=== PATIENT | male | born 1955 | race Caucasian/White ===

== ENCOUNTER 2024-04-22 17:19 | Inpatient (IN) | payer OTHER, MEDICARE, SELFPAY ==
[2024-04-22] VITALS (7 sets, daily range): BP systolic 129–200; BP diastolic 77–130; BMI 33.5; BMI 32.9
[2024-04-22 13:08] LABS: % Basophils 0.3 % (0-2); % Eosinophils 1.7 % (0-6); % Immature Granulocytes 0.6 % (0-0.5); % Lymphocytes 9.3 % (20.5-51.1); % Monocytes 7.3 % (1.7-9.3); % Neutrophils 80.8 % (42.2-75.2); Absolute Eosinophils 0.3 10^3/uL (0-0.7); Absolute Immature Granulocytes 0.1 10^3/uL (0-0.05); Absolute Lymphocytes 1.5 10^3/uL (1.2-3.4); Absolute Monocytes 1.2 10^3/uL (0.1-0.6); Absolute Neutrophils 12.7 10^3/uL (1.4-6.5); Hematocrit 42.9 % (39.0-52.0); Hemoglobin 15.1 g/dL (13.0-18.0); Mean Corp Hgb Conc. 35.2 g/dL (33.0-37.0); Mean Corpuscular Hgb 33.7 pg (27.0-31.0); Mean Corpuscular Volume 95.8 fL (80.0-94.0); Mean Platelet Volume 9.5 fL (7.4-10.4); Nucleated Red Blood Cells % 0 % (-); Platelet Count 215 10^3/uL (130-400); Red Blood Cell Count 4.48 10^6/uL (4.70-6.10); Red Cell Dist. Width 12.4 % (11.5-14.5); White Blood Cell Count 15.7 10^3/uL (4.8-10.8)
[2024-04-22 13:22] LABS: ALT (SGPT) 24 U/L (0-50); AST (SGOT) 29 U/L (17-59); Albumin 4.7 g/dl (3.5-5.0); Alkaline Phosphatase 96 U/L (38-126); Blood Urea Nitrogen 16 mg/dl (9-20); Calcium 9.8 mg/dl (8.4-10.2); Carbon Dioxide 21 mmol/L (22-30); Chloride 101 mmol/L (98-107); Estimated Creatinine Clearance > 125 ml/min; Glucose 209 mg/dl (70-99); Potassium 4.4 mmol/L (3.5-5.1); Sodium 138 mmol/L (135-145); Total Bilirubin 1.4 mg/dl (0.2-1.3); Total Protein 7.6 g/dl (6.3-8.2); eGFR > 60.00
[2024-04-22 13:29] LABS: NT-proBNP 1730 pg/ml
[2024-04-22 13:33] LABS: COVID-19 Antigen Negative (Negative)
--- NOTE | 2024-04-22 13:44 | ED.GENMED ---
History of Present Illness
General
Chief Complaint: Breathing Problem
Source: patient
Exam Limitations: none
Time Seen by Provider: 04/22/24 13:21
History of Present Illness
History of Present Illness:
68-year-old male noncemented diabetic presents with a cough for the past several days with intermittent chills and shortness of breath today. Denies measurable fever. Denies chest pain. No abdominal pain nausea or vomiting. No leg swelling or
calf pain. No prior history of CHF. No recent travel. No other complaints at this time
Past History
Past History
ED Past Medical History: Arrthythmia (Paroxysmal atrial fibrillation) and HTN
ED Past Surgical History: Other (Hernia repair)
Social History
Tobacco: Former smoker
Alcohol: Occasional
Personal:
Living: alone
Employment: Employed
Family History
Family History: Unable to obtain
Phy Exam
Physical Exam
Physical Exam:
General: Well-developed male with increased work of breathing
HEENT: Normocephalic atraumatic
Heart: Tachycardic and irregular
Lungs: Wheeze with crackles on the left with diminished breath sounds on the right
Abdomen is soft nontender
Extremities: No cyanosis or edema
Scores
Heart Failure Risk
Heart Failure Risk Score: Not Applicable
Course
Orders/Labs/Results
Orders:
Orders
04/22/24 12:33
Electrocardiogram (*1) Urgent
Reason for Study: Shortness of Breath
04/22/24 12:34
EKG- Treatment ONCE
04/22/24 12:56
CR Chest - 2 Views Urgent
Comment:
Reason For Exam: sob, cough for 3 days.
04/22/24 12:58
COVID-19 Antigen Urgent
Source: Nasal Swab
Complete Blood Count/With Diff Urgent
Comprehensive Metabolic Panel Urgent
NT-proBNP Urgent
Influenza A+B Rapid Molecular Urgent
MATT Source: Nasal Swab
Specimen Description:
04/22/24 13:41
Ipratropium/Albuterol Sulfate [Duoneb] 3 ml INH R NOW STA
04/22/24 13:47
Azithromycin 500 mg/250 ml [Zithromax Infusion] 500 mg in 250 ml IV NOW
CefTRIAXone [Rocephin] 1,000 mg IV NOW STA
04/22/24 14:29
Sterile Water [Sterile Water For Injection] 10 ml .ROUTE .K-MED ONE
Abnormal Lab Results
04/22/24
12:58
WBC 15.7 H 10^3/uL
(4.8-10.8)
RBC 4.48 L 10^6/uL
(4.70-6.10)
MCV 95.8 H fL
(80.0-94.0)
MCH 33.7 H pg
(27.0-31.0)
Abs Immat Gran (auto) 0.1 H 10^3/uL
(0-0.05)
Absolute Neuts (auto) 12.7 H 10^3/uL
(1.4-6.5)
Absolute Monos (auto) 1.2 H 10^3/uL
(0.1-0.6)
Immature Gran % 0.6 H %
(0-0.5)
Neutrophils % 80.8 H %
(42.2-75.2)
Lymphocytes % 9.3 L %
(20.5-51.1)
Carbon Dioxide 21 L mmol/L
(22-30)
Creatinine 0.6 L mg/dL
(0.7-1.3)
Glucose 209 H mg/dl
(70-99)
Total Bilirubin 1.4 H mg/dl
(0.2-1.3)
04/22/24 12:58
04/22/24 12:58
Vital Signs
Initial and Last Documented VS:
Initial Vital Signs
Pulse BP Pulse Ox
128 200/130 85
04/22/24 12:37 04/22/24 12:37 04/22/24 12:37
Last Documented Vital Signs
Pulse Resp BP Pulse Ox
112 24 163/87 97
04/22/24 13:15 04/22/24 13:15 04/22/24 13:00 04/22/24 13:34
MDM/Problems Addressed
Differential Diagnosis Includes:
Increased work of breathing cough chills. Consider COVID versus viral illness such as influenza versus pneumonia versus bronchitis.
Patient is 85% on room air now requiring 4 L of oxygen. Chest x-ray reviewed possible opacity in the right middle lobe by ED provider. Read as negative by radiology.
Will treat with DuoNeb. COVID and flu test are negative. Concern for possible underlying pneumonia in a diabetic patient with leukocytosis.
*Critical Care Note
Total Time (30-74mins, 75-104mins- exclusive of procedures): Not Applicable
Update Note
Update Note:
Chest x-ray reviewed. Patient persist to require oxygen. He felt as though the DuoNeb helped him. Clinically suspect pneumonia with leukocytosis cough and chills. Rocephin and Zithromax ordered. Admit to hospitalist
ED Attending Note
-
Portions of this chart may have been created with voice recognition software.� Occasional wrong word or��sound alike� substitutions may have occurred due to the inherent limitations of voice recognition software.
Discharge Plan
Departure
Patient Disposition: Admit
Date of Disposition: 04/22/24
Time of Disposition: 14:36
Admit to: Telemetry
Presentation/result/management discussed w/ accepting MD/DO: Hospitalist
Discharge Problem:
Hypoxia
Prescriptions:
No Action
multivitamin with folic acid [Tab-A-Kristian] 1 TABLET tablet
1 tab PO DAILY
metoprolol succinate 100 mg Tablet Extended Release 24 Hr
100 mg PO QPM
aspirin 81 mg Tablet,Delayed Release (Dr/Ec)
81 mg PO DAILY
diltiazem HCl 120 mg capsule,extended release 12 hr
120 mg PO DAILY
metformin 1,000 mg tablet
1,000 mg PO BIDWMEAL
Ozempic 1 mg/dose (4 mg/3 mL) pen injector
1 mg SC MOREL
Beet
1 tab PO DAILY
Referrals:
Lev Andrea MD [Family Provider] -
Interventions
Interventions:
*Risk Screen - Suicide Last Done: 04/22/24 12:38
*General Assessment Last Done: 04/22/24 13:13
*Neglect/Abuse Screening Last Done: 04/22/24 12:38
ED- Cardiac Assessment Last Done: 04/22/24 13:04
ED- Pulmonary Assessment Last Done: 04/22/24 13:04
Discharge Date and Time
Print Language: TAJIK
[2024-04-22] MEDS: DUONEB 3 ML INH ×2 (13:52→21:15)
[2024-04-22] MEDS: ZITHROMAX INFUSION 250 IV (14:31)
[2024-04-22] MEDS: ROCEPHIN 1000 MG IV (14:31)
--- NOTE | 2024-04-22 16:43 | W.PN.UPDATE ---
Update Note
Progress Note Update
Seen and examined by me independently in collaboration with the resident Maxx.
Past medical history/social history/medication/allergies reviewed.
Lab data and imaging data reviewed.
Patient was presents with a prodrome of respiratory illness which is going on for a week. He was having fever, sweats and cough. The cough started to get worse and he started feel congested and was hearing every. He was also getting short of
breath so he came into the ER.
In the ER he was noted to be tachypneic and wheezing and was also noted to be hypoxic with saturations of 85% on room air.
With a clinical concern of pneumonia we are asked to evaluate for admission.
Patient denies any contact with sick people. No recent travel. Denies any primary lung problems but he does remember having a pneumonia 2 years ago. He is a smoker for 35 years a pack a day and quit 10 years ago. Does not use any inhalers.
Denies any history of heart failure but he has a history of atrial fibrillation and has declined anticoagulation for quite some time. 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
No nausea vomiting. No diarrhea.
Temperature record not available in the chart. Tachypnea and tachycardia noted. Blood pressure stable. No respiratory distress or use of accessory muscles of respiration.
Chest currently without wheeze but he was noted to be wheezy apparently and he received breathing treatments which has helped. Few crackles in the right base.
Heart sinus versus irregular.
Abdomen benign.
No lower extremity edema or JVD.
Chest x-ray shows right basilar opacity-atelectasis versus scarring.
Leukocytosis noted.
EKG and atrial fibrillation with tachycardia.
Clinical symptomatology concerning for community-acquired pneumonia-rule out bacterial. Start on empirical antibiotics with ceftriaxone and doxycycline. Check a procalcitonin. Follow clinical response and antibiotics. Follow blood cultures.
Check a sputum culture.
Pneumonia with reactive airways-treat with nebulizers for now. Hold on steroids. No given diagnosis of COPD or emphysema.
Atrial fibrillation-patient says he is always in atrial fibrillation which makes it permanent. He had it for few years. Had declined anticoagulation. Couple of his siblings have A-fib and one of them is on anticoagulation. He understands the
risk of stroke. Does not want to go on anticoagulation. wants to remain on aspirin. Follow on telemetry with her pulmonary issues. Continue with his Cardizem.
Hypertension continue home medication
Diabetes mellitus-hold metformin. Continue with semaglutide if he is able to bring his medication to the hospital. add sliding scale insulin.
Portions of this chart may have been created with voice recognition software. Occasional wrong word or 'sound alike' substitutions may have occurred due to the inherent limitations of voice recognition software.
--- NOTE | 2024-04-22 17:01 | HPS.HSE ---
Family Physician
-
Family Physician: Lev Andrea
Chief Complaint
-
Shortness of breath
History of Present Illness
Pt is a 68 year old male with a PMH of hypertension, atrial fibrillation, diabetes mellitus type 2 presented to the ED today because he woke up today morning with worsening cough, chest congestion, and wheeze. His symptoms started a week ago with a
slight cough which was dry in nature and then it gradually increased in intensity until it got unbearable today morning for which he admitted himself. The chest congestion and wheeze were present only today morning. No nausea, vomiting, recent
travel, throat pain, headache, association with sick contacts. He had a similar presentation 2 years for which he was diagnosed with pneumonia. In the ER, chest x-ray showed minor scarring or atelectasis in the right lung base, EKG showed atrial
fibrillation with rapid ventricular response. Patient was started on Rocephin and Zithromax and DuoNeb in the ER. He is currently on 2 L nasal cannula saturating at 95%. without oxygen, his saturation is 85% on room air. Negative for Covid and
Flu.
Medical History
Past Medical History
Past Medical History: Reports Arrhythmia, HTN and NIDDM
Past Surgical History: Reports Other (Hernia surgery)
Social History
Tobacco: Former Smoker (quit 10 years ago, smoked a pack a day)
Alcohol: Occasional
Drug: None
Personal:
Living: With Family
Family History
Family History: Not pertinent
Allergies / Home Medications
Allergies reflects when Allergies were last updated in [facility].
Home Medications with original date entered in [facility]
Allergy/Medication List:
Allergies
Allergy/AdvReac Type Severity Reaction Status Date / Time
No Known Allergies Allergy Verified 04/22/24 12:38
Home Medications
multivitamin with folic acid 400 mcg tablet (Tab-A-Kristian) 1 tab PO DAILY Supplement 05/31/19
aspirin 81 mg tablet,delayed release 81 mg PO DAILY Blood clot prevention/tx 08/18/22
metoprolol succinate 100 mg tablet,extended release 24 hr 100 mg PO QPM Heart disease/condition 08/18/22
Beet 1 tab PO DAILY 04/22/24
diltiazem HCl 120 mg capsule,extended release 12 hr 120 mg PO DAILY 04/22/24
metformin 1,000 mg tablet 1,000 mg PO BIDWMEAL 04/22/24
semaglutide 1 mg/dose (4 mg/3 mL) subcutaneous pen injector (Ozempic) 1 mg SC MOREL 04/22/24
Review of Systems
-
History Source: Patient
Respiratory: Reports Cough, Trouble Breathing and Other (chest congestion)
Cardiac: Denies Chest Pain
Physical Exam
Vital Signs
Vital Signs
Pulse Resp BP Pulse Ox
101 20 138/82 94
04/22/24 16:45 04/22/24 16:45 04/22/24 16:00 04/22/24 16:45
Physical Exam
General: Obese
HEENT: Oxygen (2L nasal cannula )
Respiratory: Wheezes (diffuse) and Crackles (left lower lung base)
Cardiac: Irregular Rhythm and Murmur
GI: Soft
Neuro: Awake, Alert, Oriented and AO x 3
Psych: Calm
Laboratory Results
-
04/22/24 12:58
04/22/24 12:58
Laboratory Results
Total Bilirubin 1.4 mg/dl (0.2-1.3) H 04/22/24 12:58
AST 29 U/L (17-59) 04/22/24 12:58
ALT 24 U/L (0-50) 04/22/24 12:58
Alkaline Phosphatase 96 U/L (38-126) 04/22/24 12:58
Data Reviewed
-
Lab Data: Labs Reviewed by me and Discussed with Physician
Impression/Plan
-
IMPRESSION:
Pneumonia
Atrial Fibrillation (not on coagulation)
Essential HTN
Diabetes
PLAN:
Community acquired Pneumonia:
- Ordered Ceftriaxone and Doxycycline as empiric measure
- Ordered Procalcitonin, blood culture, sputum culture
- Continue patient on oxygen therapy
- Patient presents with hypoxia, shortness of breath, cough, chills, chest congestion
- His WBC count is elevated at 15.7
- Chest Xray showed atelectasis in the right lower lung base and minor scarring
- He is currently on oxygen saturation of 95% on 2l NC, without oxygen he is saturating at 85% on room air
Atrial Fibrillation (not on coagulation)
- Patient is taking Aspirin 81
- He is in Afib on EKG taken in ER, he says he is always in Afib, and patient does not want to take any anticoagulation even when presented with the risks
Essential HTN
- blood pressure is 138/82
- He is taking diltiazem
- Blood pressure is well controlled but will continue to monitor
Diabetes
- His serum glucose level is 209
- His home medication of metformin is put on hold
- Insulin sliding scale ordered
- Hemoglobin A1C ordered
[2024-04-22 17:02] LABS: Procalcitonin < 0.05 ng/ml (0.0-0.25)
[2024-04-22] MEDS: LOVENOX 40 MG SC (20:57)
[2024-04-22] MEDS: VIBRAMYCIN 100 MG PO (20:58)
[2024-04-22] MEDS: TOPROL XL 100 MG PO (20:58)
[2024-04-22] MEDS: TYLENOL 650 MG PO (22:37)
[2024-04-23 03:34] VITALS: BP 138/75
[2024-04-23 07:10] VITALS: BP 175/98
--- NOTE | 2024-04-23 07:23 | W.PN.HOSP.TC ---
Addendum entered and electronically signed by Becky Rodriguez MD 04/23/24 19:55:
I saw and evaluated the patient independently. I reviewed the resident�s note and agree with findings and plan as documented by Dr. Mccracken.
GENERAL: well developed, well nourished, male in no apparent distress
HEENT: NC/AT--O2 NC [address]
HEART: regular rate and rhythm, +S1, +S2
LUNGS : crackles right base with diffuse mild wheezing
ABDOM: soft, nontender, nondistended, + bowel sounds
EXT: no cyanosis, clubbing, or edema
NEUROLOGIC: grossly intact
Community acquired Pneumonia-- cont Ceftriaxone and Doxycycline --check sputum culture--add IV steroids (low dose) and cough med--blood cultures no growth--wean O2 to off as able--WBC improving
permanent Atrial Fibrillation (not on coagulation)--cont asa--pt says he is always in A-fib, and patient does not want to take any anticoagulation even when presented with the risks. He reports he is aware of the risks and his father has stroke and
A-fib.
Essential HTN--Continue diltiazem
Type 2 Diabetes- His serum glucose level is 209 on 04/22 and 173 on 04/23 - His home medication of metformin is put on hold- Insulin sliding scale ordered - Hemoglobin A1C ordered: 6.6 %
DVT proph--asa
code status -- FULL CODE
Original Note:
Today's Communication/Plan
-
The patient reported feeling better today and has less difficulty with breathing. He only reported more coughing than his baseline.
Assessment / Plan
Assessment / Plan
Assessment and Plan
Assessment: The patient is a 68 year old male who presented to ER complaining from worsening cough, chest congestion, and wheeze. He reported that his symptoms started a week ago with a slight cough which was dry in nature and then it gradually
increased in intensity until it got unbearable for which he presented to ER. His chest x-ray showed minor scarring or atelectasis in the right lung base, EKG showed atrial fibrillation with rapid ventricular response. Patient was started on
Rocephin and Zithromax and DuoNeb in the ER. He is currently on 2 L nasal cannula saturating at 95%. without oxygen, his saturation is 85% on room air. Negative for Covid and Flu. Patient denies nausea, vomiting, recent travel, throat pain,
headache, association with sick contacts. He had a similar presentation 2 years ago for which he was diagnosed with pneumonia.
Impression:
Pneumonia
Atrial Fibrillation (not on coagulation)
Essential HTN
Diabetes
PLAN:
Community acquired Pneumonia: On Ceftriaxone and Doxycycline as empiric measure
- Ordered blood culture: No growth in 24 hours
-Ordered sputum culture: pending
-Ordered nasal swab: Negative for influenza
-Ordered Procalcitonin:<0.05
- Continue patient on oxygen therapy
- His WBC count decreased from 15.7 to 9.2
- Chest Xray showed atelectasis in the right lower lung base and minor scarring
- He is currently on oxygen saturation of 95% on 2l NC, without oxygen he is saturating at 85% on room air. Continue Oxygen
Atrial Fibrillation (not on coagulation)
- Patient is taking Aspirin 81
- He is in A-fib on EKG taken in ER, he says he is always in A-fib, and patient does not want to take any anticoagulation even when presented with the risks. He reports he is aware of the risks and his father has stroke and A-fib.
Essential HTN
-Continue diltiazem
- Blood pressure is well controlled but will continue to monitor
Diabetes
- His serum glucose level is 209 on 04/22 and 173 on 04/23
- His home medication of metformin is put on hold
- Insulin sliding scale ordered
- Hemoglobin A1C ordered: 6.6 %
Anticipated Discharge: 24 - 48 hours
Subjective/Interval History
-
Date of Service: April 23, 2024
The patient reported coughing more frequently and was willing to have anti-cough medication.
Objective Data
-
Labs:
Laboratory Results
04/23/24
07:17
WBC Pending
Hgb Pending
Hct Pending
Plt Count Pending
PT Pending
INR Pending
APTT Pending
Sodium Pending
Potassium Pending
Chloride Pending
Carbon Dioxide Pending
BUN Pending
Creatinine Pending
Glucose Pending
Calcium Pending
Total Bilirubin Pending
AST Pending
ALT Pending
Alkaline Phosphatase Pending
Vital Signs:
Vital Signs
Temp Pulse Resp BP Pulse Ox
97.9 F 78 18 138/75 95
04/23/24 03:34 04/23/24 03:34 04/23/24 03:34 04/23/24 03:34 04/23/24 03:34
I&O
04/22/24 04/23/24 04/24/24
06:59 06:59 06:59
Intake Total 240 / 240
Output Total 900 / 900
Balance -660 / -660
Review of Systems
-
EENT: Reports No Symptoms Reported
Respiratory: Reports Cough and Wheezing
Cardiac: Reports No Symptoms
Abdomen/GI: Reports No Symptoms
Genitourinary: Reports No Symptoms
Skin: Reports No Symptoms
Neuro: Reports No Symptoms
Physical Exam
-
General: No Apparent Distress
HEENT: Normocephalic and Atraumatic
Respiratory: Wheezes and Crackles (on the right lung basal area )
Cardiac: S1/S2, Irregular Rhythm and Murmur
GI: Nontender
Skin: Warm
Neuro: Awake, Alert and Oriented
[2024-04-23 07:43] LABS: Glucose - Point of Care 177 mg/dl (70-99)
[2024-04-23 07:57] LABS: % Basophils 0.4 % (0-2); % Eosinophils 2.4 % (0-6); % Immature Granulocytes 0.3 % (0-0.5); % Lymphocytes 10.1 % (20.5-51.1); % Monocytes 12.3 % (1.7-9.3); % Neutrophils 74.5 % (42.2-75.2); Absolute Eosinophils 0.2 10^3/uL (0-0.7); Absolute Lymphocytes 0.9 10^3/uL (1.2-3.4); Absolute Monocytes 1.1 10^3/uL (0.1-0.6); Absolute Neutrophils 6.9 10^3/uL (1.4-6.5); Hematocrit 39.8 % (39.0-52.0); Hemoglobin 14.1 g/dL (13.0-18.0); Mean Corp Hgb Conc. 35.4 g/dL (33.0-37.0); Mean Corpuscular Hgb 33.7 pg (27.0-31.0); Mean Platelet Volume 9.9 fL (7.4-10.4); Nucleated Red Blood Cells % 0 % (-); Platelet Count 187 10^3/uL (130-400); Red Blood Cell Count 4.19 10^6/uL (4.70-6.10); Red Cell Dist. Width 12.4 % (11.5-14.5); White Blood Cell Count 9.2 10^3/uL (4.8-10.8)
[2024-04-23 08:10] LABS: INR 1.33; PT 16.3 Sec (11.4-14.6)
[2024-04-23 08:11] LABS: APTT 36.1 Sec (23.4-35.0)
[2024-04-23] MEDS: DUONEB 3 ML INH ×2 (08:18→20:55)
[2024-04-23] MEDS: THERAGRAN 1 TABLET PO (08:21)
[2024-04-23] MEDS: CARDIZEM SR 120 MG PO (08:21)
[2024-04-23] MEDS: ASPIR LOW (ENTERIC COATED) 81 MG PO (08:21)
[2024-04-23] MEDS: VIBRAMYCIN 100 MG PO ×2 (08:21→20:09)
[2024-04-23] MEDS: NOVOLOG FLEXPEN-LOW RESISTANCE 1 UNITS SC (08:27)
[2024-04-23 08:47] LABS: Glycohemoglobin (HgbA1c) 6.6 % (4.0-5.6)
[2024-04-23 09:22] LABS: ALT (SGPT) 21 U/L (0-50); AST (SGOT) 28 U/L (17-59); Albumin 4.3 g/dl (3.5-5.0); Alkaline Phosphatase 80 U/L (38-126); Blood Urea Nitrogen 10 mg/dl (9-20); Calcium 9.5 mg/dl (8.4-10.2); Carbon Dioxide 21 mmol/L (22-30); Chloride 102 mmol/L (98-107); Estimated Creatinine Clearance > 125 ml/min; Glucose 173 mg/dl (70-99); Potassium 4.3 mmol/L (3.5-5.1); Sodium 140 mmol/L (135-145); Total Bilirubin 1.2 mg/dl (0.2-1.3); eGFR > 60.00
[2024-04-23 11:11] VITALS: BP 128/65
[2024-04-23 11:34] LABS: Glucose - Point of Care 204 mg/dl (70-99)
[2024-04-23] MEDS: ROCEPHIN 1000 MG IV (13:19)
[2024-04-23] MEDS: STERILE WATER FOR INJECTION 10 ML IV (13:20)
[2024-04-23] MEDS: NOVOLOG FLEXPEN-LOW RESISTANCE 2 UNITS SC (13:20)
[2024-04-23 15:46] VITALS: BP 135/94
--- NOTE | 2024-04-23 16:12 | CM ---
manager valuation reviewed patient's chart and met with patient and patient lives in a one story home, patient is independent with adl's and ambulation, patient drives, patient is currently on oxygen but did not require oxygen prior to admission, patient
has a CPAP in home.
Pharmacy: [facility]
PCP: Dr. Andrea
Plan; Home when stable.
[2024-04-23 16:55] LABS: Glucose - Point of Care 144 mg/dl (70-99)
[2024-04-23] MEDS: NOVOLOG FLEXPEN-LOW RESISTANCE SC (16:59)
[2024-04-23] MEDS: DECADRON 4 MG PO (17:18)
[2024-04-23] MEDS: TOPROL XL 100 MG PO (17:18)
[2024-04-23] MEDS: LOVENOX 40 MG SC (17:18)
[2024-04-23 19:44] VITALS: BP 164/100
[2024-04-23] MEDS: LOPRESSOR 5 MG IV (20:09)
[2024-04-23 21:20] LABS: Glucose - Point of Care 236 mg/dl (70-99)
[2024-04-23] MEDS: ROBITUSSIN DM 5 ML PO (22:51)
[2024-04-23 23:11] VITALS: BP 133/85
[2024-04-24] MEDS: DECADRON 4 MG IV ×3 (00:15→16:12)
[2024-04-24 03:29] VITALS: BP 141/79
[2024-04-24 04:29] VITALS: BP 141/79
--- NOTE | 2024-04-24 07:04 | W.PN.HOSP.TC ---
Addendum entered and electronically signed by Becky Rodriguez MD 04/24/24 20:10:
I saw and evaluated the patient independently. I reviewed the resident�s note and agree with findings and plan as documented by Dr. Mccracken.
GENERAL: well developed, well nourished, male in no apparent distress
HEENT: NC/AT--O2 NC in place
HEART: regular rate and rhythm, +S1, +S2
LUNGS : crackles right base with diffuse mild wheezing
ABDOM: soft, nontender, nondistended, + bowel sounds
EXT: no cyanosis, clubbing, or edema
NEUROLOGIC: grossly intact
Community acquired Pneumonia-- cont Ceftriaxone and Doxycycline --check sputum culture--add IV steroids (low dose) and cough med--blood cultures no growth--WBC improving--O2 weaned off--home O2 assessment done, did not require O2--ABX changed to
augmentin at d/c
permanent Atrial Fibrillation (not on coagulation)--cont asa--pt says he is always in A-fib, and patient does not want to take any anticoagulation even when presented with the risks. He reports he is aware of the risks and his father has stroke and
A-fib.
Essential HTN--Continue diltiazem
Type 2 Diabetes- His serum glucose level is 209 on 04/22 and 173 on 04/23 - His home medication of metformin is put on hold- Insulin sliding scale ordered - Hemoglobin A1C ordered: 6.6 %
DVT proph--asa
code status -- FULL CODE
Original Note:
Today's Communication/Plan
-
It was discussed with the patient and his nurse about weaning of the nasal canula and being checked with pulse oximetry.
Assessment / Plan
Assessment / Plan
Assessment and Plan
Impression
The patient is a 68 year old male who presented to ER complaining from worsening cough, chest congestion, and wheeze. He reported that his symptoms started a week ago with a slight cough which was dry in nature and then it gradually increased in
intensity until it got unbearable for which he presented to ER. His chest x-ray showed minor scarring or atelectasis in the right lung base, EKG showed atrial fibrillation with rapid ventricular response. Patient was started on Rocephin and
Zithromax and DuoNeb in the ER. He was on 2 L nasal cannula saturating at 95% and today he weaned of O2 and his O2 levels were measured higher than 89%. Negative for Covid and Flu. Patient denies nausea, vomiting, recent travel, throat pain,
headache, association with sick contacts. He had a similar presentation 2 years ago for which he was diagnosed with pneumonia.
Assessment
Pneumonia
Atrial Fibrillation (not on coagulation)
Essential HTN
Diabetes
PLAN:
Community acquired Pneumonia:
- On Ceftriaxone and Doxycycline as empiric measure
-cough med and IV steroids was started yesterday
-Wean of O2 was discussed with the patient and his nurse. His O2 level was 89% when he weaned off.
- Ordered blood culture: No growth in 24 hours
-Ordered sputum culture: - Preliminary- Usual Respiratory Rachel
-Ordered nasal swab: Negative for influenza
-Ordered Procalcitonin:<0.05
- His WBC count decreased from 15.7 to 6.5 today
- Chest Xray showed atelectasis in the right lower lung base and minor scarring
- He is currently on oxygen saturation of 95% on 2l NC, without oxygen he is saturating at 85% on room air. Continue Oxygen
Atrial Fibrillation (not on coagulation)
- Patient is taking Aspirin 81
- He is in A-fib on EKG taken in ER, he says he is always in A-fib, and patient does not want to take any anticoagulation even when presented with the risks. He reports he is aware of the risks and his father has stroke and A-fib.
Essential HTN
-Continue diltiazem
- Blood pressure is well controlled but will continue to monitor
Diabetes
- His serum glucose level is 209 on 04/22 and 173 on 04/23/ 248 on 04/24
- His home medication of metformin is put on hold
- Insulin sliding scale ordered
- Hemoglobin A1C ordered: 6.6 %
Anticipated Discharge: Today
Subjective/Interval History
-
Date of Service: April 24, 2024
The patient reports less coughing and feeling better with breathing.
Objective Data
-
Labs:
Laboratory Results
04/24/24
06:00
WBC Pending
Hgb Pending
Hct Pending
Plt Count Pending
Sodium Pending
Potassium Pending
Chloride Pending
Carbon Dioxide Pending
BUN Pending
Creatinine Pending
Glucose Pending
Calcium Pending
Total Bilirubin Pending
AST Pending
ALT Pending
Alkaline Phosphatase Pending
Vital Signs:
Vital Signs
Temp Pulse Resp BP Pulse Ox
98.1 F 117 18 141/79 95
04/24/24 03:29 04/24/24 03:29 04/24/24 03:29 04/24/24 03:29 04/24/24 03:29
I&O
04/23/24 04/24/24 04/25/24
06:59 06:59 06:59
Intake Total 240 / 240 1320 / 1320
Output Total 900 / 900 600 / 600
Balance -660 / -660 720 / 720
Review of Systems
-
EENT: Reports No Symptoms Reported
Respiratory: Reports Cough and Wheezing
Cardiac: Reports No Symptoms
Abdomen/GI: Reports No Symptoms
Genitourinary: Reports No Symptoms
Musculoskeletal: Reports No Symptoms
Skin: Reports No Symptoms
Neuro: Reports No Symptoms
Physical Exam
-
General: Well Developed, Well Nourished and No Apparent Distress
HEENT: Normocephalic and Atraumatic
Respiratory: Wheezes and Crackles (On the right lung basal area )
Cardiac: S1/S2 and Irregular Rhythm
GI: Soft and Nontender
Skin: Warm
Neuro: Awake, Alert and Oriented
[2024-04-24 07:10] VITALS: BP 128/89
[2024-04-24 07:41] LABS: Glucose - Point of Care 239 mg/dl (70-99)
[2024-04-24 08:22] LABS: Hematocrit 40.7 % (39.0-52.0); Hemoglobin 14.4 g/dL (13.0-18.0); Mean Corp Hgb Conc. 35.4 g/dL (33.0-37.0); Mean Corpuscular Volume 93.1 fL (80.0-94.0); Mean Platelet Volume 9.8 fL (7.4-10.4); Platelet Count 208 10^3/uL (130-400); Red Blood Cell Count 4.37 10^6/uL (4.70-6.10); Red Cell Dist. Width 12.3 % (11.5-14.5); White Blood Cell Count 6.5 10^3/uL (4.8-10.8)
[2024-04-24] MEDS: NOVOLOG FLEXPEN-LOW RESISTANCE 2 UNITS SC (08:29)
[2024-04-24] MEDS: CARDIZEM SR 120 MG PO (08:30)
[2024-04-24] MEDS: ASPIR LOW (ENTERIC COATED) 81 MG PO (08:31)
[2024-04-24] MEDS: THERAGRAN 1 TABLET PO (08:31)
[2024-04-24] MEDS: VIBRAMYCIN 100 MG PO (08:31)
[2024-04-24] MEDS: ROBITUSSIN DM 5 ML PO (08:42)
[2024-04-24 09:15] LABS: ALT (SGPT) 20 U/L (0-50); AST (SGOT) 27 U/L (17-59); Albumin 4.2 g/dl (3.5-5.0); Alkaline Phosphatase 79 U/L (38-126); Blood Urea Nitrogen 14 mg/dl (9-20); Calcium 9.4 mg/dl (8.4-10.2); Carbon Dioxide 22 mmol/L (22-30); Chloride 101 mmol/L (98-107); Estimated Creatinine Clearance > 125 ml/min; Glucose 248 mg/dl (70-99); Potassium 4.3 mmol/L (3.5-5.1); Sodium 140 mmol/L (135-145); Total Bilirubin 0.8 mg/dl (0.2-1.3); eGFR > 60.00
[2024-04-24 11:16] VITALS: BP 125/87
[2024-04-24 11:39] LABS: Glucose - Point of Care 318 mg/dl (70-99)
[2024-04-24] MEDS: NOVOLOG FLEXPEN-LOW RESISTANCE 4 UNITS SC ×2 (12:30→16:41)
[2024-04-24] MEDS: STERILE WATER FOR INJECTION 10 ML IV (12:45)
[2024-04-24] MEDS: ROCEPHIN 1000 MG IV (12:45)
--- NOTE | 2024-04-24 14:28 | CM ---
Patient seen at bedside with physician and residents. Patient eager to go home, but understood that he needed to have home O2 assessment completed first. Patient completed IMM and signed form placed on chart. Patient plan is for home with no needs
if he does not qualify for home O2. CM will continue to follow for discharge planning needs.
Plan; home with no needs. watch for home O2 needs.
--- NOTE | 2024-04-24 14:45 | PTCARENOTE ---
Pulse ox at rest 95% on room air. Ambulated approximately 600 feet, pulse ox during ambulation 89-92% on room air.
[2024-04-24 15:31] VITALS: BP 133/90
[2024-04-24 16:37] LABS: Glucose - Point of Care 322 mg/dl (70-99)
[2024-04-24] MEDS: TOPROL XL 100 MG PO (16:46)
[2024-04-24] MEDS: LOVENOX SC (16:54)
--- NOTE | 2024-04-24 17:26 | W.DCSUMMARY ---
Addendum entered and electronically signed by Becky Rodriguez MD 04/24/24 20:08:
Read, reviewed, and agree. See same day progress note for additional details. Time spent coordinating care, DC planning, review of DC plan of care with resident, transition of care, review of records in EMR, med rec, consults, notes, d/w
consultants, nursing, family, and CM = 45 minutes
Patient did not require oxygen at discharge. Pulse ox was 89 to 96% on room air. He was given a note to return to work this coming Tuesday, April 30, 2024.
Patient is stable for discharge at this time.
Original Note:
Discharge Summary
Discharge Data
Date of Admission: 04/22/24
Date of Discharge: 04/24/24
-
Pending Results: No
Hospital Course
Principal Discharge diagnosis: Community acquired Pneumonia
Chronic Discharge diagnosis : Atrial Fibrillation (not on coagulation), Essential HTN, Diabetes
Hospital Course: The patient is a 68 year old male who presented to ER complaining from worsening cough, chest congestion, and wheeze. He reported that his symptoms started a week ago with a slight cough which was dry in nature and then it gradually
increased in intensity until it got unbearable for which he presented to ER. His chest x-ray showed minor scarring or atelectasis in the right lung base, EKG showed atrial fibrillation with rapid ventricular response. Patient was started on
Rocephin and Zithromax and DuoNeb in the ER. He was continued on Rocephin and Doxycycline as empiric measure. And he was given anti-cough medication and steroids to improve his coughing and breathing. His WBC count decreased from 15.7 to 6.5. He was
in A-fib on EKG taken in ER, he reported that he is always in A-fib, and he does not want to take any anticoagulation even when presented with the risks. He reports he is aware of the risks and his father had stroke and A-fib.
Problem 1: Community acquired Pneumonia symptoms resolved after he was started on antibiotics. His WBC count is in normal limits and he does not have difficulty with breathing. His antibiotic regimen was planned to complete to 14 days. Augmentin
was prescribed for 11 days for the patient.
Problem 2: He was in A-fib on EKG taken in ER. He reported that he is always in A-fib, and he does not want to take any anticoagulation even when presented with the risks
Problem 3: All other medical issues. Essential HTN and Diabetes. These medical issues were stable during his hospitalization. Medications were continued as able.
Patient is stable for discharge home. If there are any questions regarding this dictation or his hospital stay, please not hesitate to call. Our office number is [phone].
Time for discharge 45 minutes.
Important imaging findings :
CR Chest on 04/22/24
Minor scarring or atelectasis in the right lung base. Incidental azygos fissure. Trace right pleural fluid versus pleural thickening. No focal consolidation or pneumothorax. Stable mild enlargement of the cardiac silhouette. Chronic degenerative
changes of the spine. No acute cardiopulmonary process.
Discharge Plan
-
Patient Disposition: Home (Routine Discharge)
Discharge Diagnosis/Procedures: Community acquired Pneumonia, Atrial Fibrillation ,Essential HTN, Diabetes
Diet: Low Fat and Low Cholesterol
Activity: No restrictions
Referrals:
Lev Andrea MD [Family Provider] -
Prescriptions:
New
amoxicillin-pot clavulanate 500-125 mg tablet
1 tab PO Q12H Qty: 20 0RF
prednisone 10 mg Tablet
See Rx Instructions .ROUTE .COMPLEX Qty: 30 0RF
Rx Instructions:
Take By Mouth:
40 mg daily x3 days, 30 mg daily x3 days,
20 mg daily x3 days, 10 mg daily x3 days.
Continued
multivitamin with folic acid [Tab-A-Kristian] 1 TABLET tablet
1 tab PO DAILY
metoprolol succinate 100 mg Tablet Extended Release 24 Hr
100 mg PO QPM
aspirin 81 mg Tablet,Delayed Release (Dr/Ec)
81 mg PO DAILY
diltiazem HCl 120 mg capsule,extended release 12 hr
120 mg PO DAILY
metformin 1,000 mg tablet
1,000 mg PO BIDWMEAL
Ozempic 1 mg/dose (4 mg/3 mL) pen injector
1 mg SC MOREL
Beet
1 tab PO DAILY
Discharge Orders:
Discharge Patient (As Directed); Ordered 04/24/24
Ordered By: Allison Mccracken
Discharge Date and Time
Discharge Date/Time: 04/24/24 19:33
Print Language: UPPER SORBIAN
== END 2024-04-24 19:33 | disposition home or self-care (01) | DRG 194 ==
LOC: 4 WEST ACU 17:19
PROVIDERS: Student in an Organized Health Care Education/Training Program; ADMITTING PHYSICIAN Internal Medicine; ATTENDING PHYSICIAN Internal Medicine; EMERGENCY PHYSICIAN Student in an Organized Health Care Education/Training Program; FAMILY PHYSICIAN Family Medicine
DX: J18.9 Pneumonia, unspecified organism (principal); J98.11 Atelectasis; E11.9 Type 2 diabetes mellitus without complications; I10 Essential (primary) hypertension; I48.0 Paroxysmal atrial fibrillation; R09.02 Hypoxemia; Z79.82 Long term (current) use of aspirin; Z79.84 Long term (current) use of oral hypoglycemic drugs; Z79.899 Other long term (current) drug therapy; Z87.891 Personal history of nicotine dependence; Z82.49 Family history of ischemic heart disease and other diseases of the circulatory system
CPT/HCPCS: 71046; 80053; 82962; 83036; 83880; 84145; 85025; 85027; 85610; 85730; 87040; 87070; 87205; 87449; 87502; 87811; 93005; 94640; 96365; 96375; 99285

== ENCOUNTER → 2024-08-10 10:36 | Outpatient (REF) | payer OTHER, SELFPAY | LOC: HWRAD 10:36 | PROVIDERS: ATTENDING PHYSICIAN Family Medicine | DX: R06.02 Shortness of breath (principal); Z87.01 Personal history of pneumonia (recurrent); Z87.891 Personal history of nicotine dependence | CPT/HCPCS: 71250 ==